=== PATIENT | male | born 1935 | race Caucasian/White ===

== ENCOUNTER → 2020-03-17 13:39 | Outpatient (CLI) | payer MEDICARE, OTHER, SELFPAY ==
--- NOTE | 2020-03-17 14:07 | DI.ECHO.S_ITS ---
Echocardiogram Report + + :Name: MEIR YEAGER Study Date: 03/17/2020 Height: 69 in : :[facility] Weight: 220 lb : : Gender: Male BSA: 2.2 m2 : :: 1935 Age: 84 yrs BP: 160/64 mmHg: :Reason For Study: AORTIC INSUFFICIENCY : :Ordering Physician: LESIA, : :BECKEI Performed By: Amy Mcmanus : :Referring: BECKIE GRAF : + + Interpretation Summary Left ventricular systolic function is low normal with the ejection fraction visually estimated to be 55-60% with borderline global hypokinesis and moderate mid septal wall hypokinesis but no other obvious focal wall motion abnormalities, and appears slightly more dynamic compared to the previous study. There is a mild dyssynchronous contraction pattern, consistent with a conduction abnormality, that is unchanged. Left ventricular size is at the upper limits of normal with an estimated left ventricular end diastolic volume of 102 ml compared to 112 ml on the previous exam. Diastolic parameters suggest a relaxation abnormality of the left ventricle, consistent with probable normal filling pressures and likely unchanged compared to the previous study. The right ventricle is not well visualized but appears borderline dilated with systolic function at the lower limits of normal but grossly unchanged compared to the previous study. The right ventricular systolic pressure is estimated to be at least 25 mmHg based on an estimated right atrial pressure of 3 mm Hg, and is likely unchanged compared to the previous study. Both atria are normal in size. The left atrium has mildly decreased in size since the prior echo exam. The atrial septum is aneurysmal. There is mild mitral regurgitation and mild pulmonic regurgitation that are less prominent compared to the previous study. There is mild to moderate tricuspid regurgitation that is slightly more prominent compared to the previous study. The aortic valve is mildly calcified with mild to moderate aortic regurgitation that is unchanged compared to the previous study. The ascending aorta is mild-moderately enlarged and measures slightly larger compared to the previous study. Procedure: A two-dimensional transthoracic echocardiogram with color flow and Doppler was performed. The study quality was technically adequate. Comparison is made with the echocardiogram of 02/25/2017. The patient had frequent PVCs during the exam. The heart rate ranged between 55-69 bpm during the study. Left Ventricle: Left ventricular size is at the upper limits of normal. The estimated left ventricular end diastolic volume is 102 ml compared to the previous 112 ml. There is normal left ventricular wall thickness. Left ventricular systolic function is low normal. The ejection fraction is estimated to be 55-60%. There is borderline global hypokinesis and moderate mid septal wall hypokinesis but no other obvious focal wall motion abnormalities. There is a mild dyssynchronous contraction pattern, consistent with a conduction abnormality. This is slightly more dynamic compared to the previous study. Diastolic parameters suggest a relaxation abnormality of the left ventricle, consistent with probable normal filling pressures. This is unchanged compared to the previous study. Right Ventricle: The right ventricle is not well visualized. The right ventricle is borderline dilated. Right ventricular systolic function is at the lower limits of normal. This is grossly unchanged compared to the previous study. Atria: Both atria are normal in size. The left atrium has mildly decreased in size since the prior echo exam. The atrial septum is aneurysmal. There is no Doppler evidence for an interatrial shunt. Mitral Valve: There is mild mitral annular calcification. The mitral valve is normal in structure and function. The mitral valve leaflets are slightly calcified. There is mild mitral regurgitation. This is less prominent compared to the previous study. Aortic Valve: The aortic valve is trileaflet. The aortic valve is mildly calcified. The aortic valve opens well. There is no aortic valve stenosis. There is mild to moderate aortic regurgitation. This is unchanged compared to the previous study. Tricuspid Valve: The tricuspid valve is normal in structure and function. There is mild to moderate tricuspid regurgitation. This is slightly more prominent compared to the previous study. The right ventricular systolic pressure is estimated to be at least 25 mmHg based on an estimated right atrial pressure of 3 mm Hg. This is unchanged compared to the previous study. Pulmonic Valve: The pulmonic valve leaflets are thin and pliable; valve motion is normal. There is mild pulmonic regurgitation. This is less prominent compared to the previous study. Great Vessels: The aortic root is normal size. The ascending aorta is mildmoderately enlarged. This is slightly larger compared to the previous study. The IVC is of normal diameter and collapses greater than 50% with a sniff. This suggests a low right atrial pressure of 3 mm Hg. Pericardium/ Pleura There is no pericardial effusion. There is no pleural effusion. MMode/2D Measurements & Calculations LVIDd: 5.3 cm LVOT diam: 2.0 cm LVIDs: 3.5 cm Ao root diam: 3.3 cm FS: 33.7 % asc Aorta Diam: 3.8 cm EPSS: 0.41 cm IVSd: 0.89 cm LVPWd: 0.82 cm LV holt. diameter/BSA (cm/m^2): 2.5 LV sys. diameter/BSA (cm/m^2): 1.6 LA A2 area: 22.6 cm2 RA long axis: 5.9 cm LA A4 area: 22.9 cm2 RA area: 20.1 cm2 LA length (vol): 6.4 cm RA vol: 58.5 ml LA vol: 69.1 ml RA : 27.2 ml/m2 LA vol index: 32.1 ml/m2 IVC diam: 1.3 cm RVD1 (basal): 4.2 cm TAPSE: 2.1 cm Doppler Measurements & Calculations Ao V2 max: 141.0 cm/sec LVOT Max Jose Daniel: 91.0 cm/sec Ao V2 mean: 88.3 cm/sec LV V1 max P.3 mmHg Ao max P.0 mmHg LV V1 VTI: 21.0 cm Ao mean P.7 mmHg BREEZY(I,D): 2.1 cm2 Ao V2 VTI: 32.6 cm BREEZY(V,D): 2.1 cm2 sev ratio: 0.64 BREEZY indexed to BSA (cm^2/m^2): 0.97 AI P1/2t: 639.4 msec AI dec slope: 170.8 cm/sec2 MV E max jose daniel: 61.5 cm/sec TR max jose daniel: 238.3 cm/sec MV A max jose daniel: 77.2 cm/sec TR max P.7 mmHg MV E/A: 0.80 PA pr(Accel): 13.9 mmHg Med Peak E' Jose Daniel: 7.0 cm/sec E/E' med: 8.7 Lat Peak E' Jose Daniel: 9.6 cm/sec E/E' lat: 6.4 E/e' average: 7.6 MV dec time: 0.23 sec SV(LVOT): 68.3 ml Reading Physician:09:23 AM
== END ==
PROVIDERS: Family Provider Family Medicine; PCP Family Medicine; Referring Provider Family Medicine; Visit Provider Specialist
DX: I08.3 Combined rheumatic disorders of mitral, aortic and tricuspid valves (principal); I77.89 Other specified disorders of arteries and arterioles
CPT/HCPCS: 93306

== ENCOUNTER → 2020-04-18 12:56 | Outpatient (CLI) | payer MEDICARE, OTHER, SELFPAY ==
[2020-04-19 21:01] LABS: COVID19 Sendout Not Detected (Not Detect)
== END ==
PROVIDERS: PCP Family Medicine; Visit Provider Physician Assistant
DX: Z11.59 Encounter for screening for other viral diseases (principal)
CPT/HCPCS: 87635

== ENCOUNTER 2020-04-21 06:08 | Day surgery (SDC) | payer MEDICARE, OTHER, SELFPAY ==
[2020-04-14 08:39] VITALS: BMI 31.7
[2020-04-21] VITALS (14 sets, daily range): BP systolic 118–171; BP diastolic 45–70; PULSE 50–71; RESP 12–18; TEMP 35.8–36.6; O2SAT 92–99; BMI 31.7
--- NOTE | 2020-04-21 06:00 | DI.RAD.S_ITS ---
PROCEDURE: XR KNEE LT 1TO2V INDICATIONS: post op films TECHNIQUE: 2 view(s) of the knee acquired. COMPARISON: None. FINDINGS: Bones: Patient is status post knee joint arthroplasty. Hardware components are in expected positions. Visualized bony structures are intact. Soft tissues: Overlying postoperative changes are noted. IMPRESSION: Status post left total knee arthroplasty. Dictated by: Paris Brooke M.D. on 04/21/2020 at 12:07 Approved by: Paris Brooke M.D. on 04/21/2020 at 12:07
[2020-04-21] MEDS: ACETAMINOPHEN 325 MG TABLET 975 MG PO (06:47)
[2020-04-21] MEDS: PREGABALIN 75 MG CAPSULE PO (06:48)
[2020-04-21] MEDS: CELECOXIB 200 MG CAPSULE PO (06:48)
[2020-04-21] MEDS: LACTATED RINGERS 1,000 ML 42 ML IV ×2 (07:00→08:47)
--- NOTE | 2020-04-21 07:43 | PM.PREOP ---
Pre-operative Note COVID-19 COVID-19 status: Negative Result date/Date tested (Pos, Neg/Pending): 04/18/20 Interval Note History & Physical reviewed/Exam performed by Physician: Yes Changes to H&P: No
--- NOTE | 2020-04-21 07:44 | PM.OP.1 ---
Operative Date/Time/Diagnoses Date of procedure: 04/21/20 Time of procedure: 09:41 Pre-op diagnosis: Left knee osteoarthritis Post-op diagnosis: same Procedure & Clinicians Procedure: Left total knee arthroplasty Same procedure as scheduled: Yes Indications: The patient presents today for total knee arthroplasty after failure of conservative treatment. The nature of the procedure including the risks and benefits, alternatives, postoperative course and expected outcome were discussed and all questions answered. Consent was obtained. Operative site confirmed and marked. Surgeon: Jaguar Hoff Hoop Maker Machine: Ileana Wang Anesthesia Type: Spinal, Peripheral nerve block and Local Operative Notes Closure Type: primary Specimen(s): none sent Prosthetic devices, grafts, tissues, transplants, or devices: [employer] [facility] BCS: 7 femoral component, 6 tibial component, 9 mm BCS polyethylene tray and 35 x 9 mm round patella Applied: implant(s) Estimated Blood Loss (mL): 5 Blood products transfused: none Tourniquet time (min): 64 Procedure in detail: The patient was taken to the operative suite and placed under anesthesia. The patient was given prophylactic antibiotics prior to surgery. The lateral knee was prepped and the joint injected with 20 mL of 1% Lidocaine with epinephrine. The knee was then prepped and draped in usual sterile fashion. The leg was exsanguinated with an Esmarch dressing and the tourniquet raised to 250 torr. A 15 cm anterior incision was made. Next a medial trivector arthrotomy was made. The extensor mechanism was marked to ensure accurate repair. Initial exposing dissection was carried out medially and laterally. The knee was then flexed and the intramedullary femoral guide rik placed. The distal femoral cut was made in 6? of valgus at the +2 position. The femoral size was measured and the appropriate cutting block was then placed and the anterior, posterior and chamfer cuts made. The intramedullary tibial alignment rik was then placed. The guide was set to remove approximately 10 mm from the less affected lateral side. The proximal tibial cut was then made with an oscillating saw. All meniscus and bony debris was then removed. Posterior femoral osteophytes removed with a curved osteotome. Flexion extension gaps were checked. No specific balancing was required other than routine exposure and removal of osteophytes. The soft tissues were then injected with a combination of 20 mL of half percent Marcaine with epinephrine and 20 mL of Exparel. The trial components were then placed. The knee was then extended and the patellar thickness was measured and a cut made removing approximately 9 mm of bone. The patella was then sized and drilled. Some excess lateral bone was excised and the patellofemoral ligament released. The knee went into full extension and flexion beyond 130?. There was excellent medial-lateral balance throughout motion. Patellar tracking was excellent. The trial components were removed and the knee was cleansed with Pulsavac irrigation and dried. The final components were cemented with high viscosity vacuum mixed bone cement with antibiotics. The joint was filled with a dilute Betadine solution. The knee was held in extension and the patellar clamped until the cement was adequately cured. The knee was then irrigated. The extensor mechanism was closed with 5 interrupted #1 Vicryl sutures and a running Quill suture at approximately 90 degrees of flexion. The joint was then injected with a combination of 1 g of tranexamic acid and 20 mL of quarter percent Marcaine with epinephrine. The subcutaneous tissue was closed with 2 0 Vicryl. The skin was closed with a zip-line closure device and surgical adhesive. An Williams dressing and Carson wrap were then applied. The patient tolerated the procedure well and was returned to recovery room in good condition. Complications: none Post-operative Condition: stable Disposition: PACU Plan for aftercare: [facility] Protocol.
[2020-04-21] MEDS: MIDAZOLAM 2 MG/2 ML VIAL IV (07:47)
[2020-04-21] MEDS: fentaNYL 100 MCG/2 ML INJ 50 MCG IV (07:47)
--- NOTE | 2020-04-21 07:57 | SUR.PREOP ---
Block start time [0746] . Monitoring initiated and maintained throughout procedure. Medications given per anesthesiologist instructions. Patient remained stable throughout procedure, no adverse reactions noted. Block end time [0754]. O2 available but not needed. Time out perfomed prior to start.
[2020-04-21] MEDS: CEFAZOLIN 2 GM/100 ML FROZ.PIGGY IV ×2 (08:09→16:09)
[2020-04-21] MEDS: LIDOCAINE 1% W/EPI 20 ML INJ (08:15)
--- NOTE | 2020-04-21 08:40 | SUR.OPER ---
Supine on padded OR bed. Pillow under head, arms secured on padded armboards <90 degree abduction. Safety belt across torso. Non-operative leg secured with tape over blanket over lower leg. Operative leg secured in DeMayo/Alexis positioner. Foam padded brace at thigh of operative leg.
[2020-04-21] MEDS: BUPIVACAINE 0.25% W/ EPI (PF) 20 ML, TRANEXAMIC ACID 1,000 MG, SODIUM CHLORIDE 0.9% 10 ML INJ (08:52)
[2020-04-21] MEDS: BUPIVACAINE 0.25% W/ EPI (PF) 40 ML, BUPIVACAINE LIPOSOME 266 MG, SODIUM CHLORIDE 0.9% ... INJ (08:52)
[2020-04-21] MEDS: SODIUM CHLORIDE IRRIG SOLUTION 250 ML, POVIDONE-IODINE SPONGE STICKS 1 APPLIC IRR (08:54)
--- NOTE | 2020-04-21 11:03 | SUR.PHASEI ---
pt arrived from OR awake, O2 sats were low, repositioned pt and sat up HOB, sats increased. Reminded pt occassionally to take deep breath and sats stayed >90%. Up to 216, report to DRAKE Davis.
[2020-04-21] MEDS: LACTATED RINGERS 1,000 ML 100 ML IV ×2 (11:27→22:05)
--- NOTE | 2020-04-21 11:43 | PC.NURSE ---
Addendum entered by Susan Dasilva R.N. 04/21/20 15:17: Pt states pain to left knee dull aching is 1-2/10. INES dressing does have small amount of bloody drainage shadowing, intact. Pt had not voided since being at home earlier this AM. Bladder scan done at 1415 for 559 mls by ROPING MACHINE TENDER. Pt OOB and voided approx 500 mls in urinal. Pt then ambulated in hallway with PT around 1445, settled into recliner chair, call light within reach. Original Note: Day Shift- Report rec'd from DRAKE Brown at 1042. Pt arrived to unit room 216 at 1055 via bed. Bedside left knee dressing check done. INES dressing CDI, ice pack in place, green flashing light on INES dressing device is intermittent. VSS, afebrile. Pt oriented to call light, bed functions, HOB elevated. Alert and oriented X4. Uses portable speaking device to communicate his needs. Pt very pleasant and makes jokes. Denies pain, discomfort, nausea, shortness of breath. Pt able to use incentive spirometer to trach site, some difficulty noted. IS to volume of 1000, pt does cough after using, O2 sats 97% on RA. BLE pt denies any numbness, able to lift both legs off bed equally. PPP, no peripheral edema noted. Calf SCD's to BLE per order, pt instructed to perform ankle waves. No voiced concerns at this time, no urge to void. Call light within reach.
[2020-04-21] MEDS: IBUPROFEN 400 MG TABLET PO ×3 (12:10→21:09)
[2020-04-21] MEDS: ACETAMINOPHEN 325 MG TABLET 650 MG PO ×2 (14:06→20:39)
--- NOTE | 2020-04-21 14:35 | PT.IIE ---
Surgery Performed Operation Date: 04/21/20 07:45 Actual Procedures p Total Knee Arthroplasty(Left) - Jaguar Hoff MD Surgical History (Last Updated 04/14/20 @ 13:14 by Lucia Robison RN) Hx of bilateral cataract extraction (Acute) Hx of laryngectomy (Acute 1990) S/P CABG x 4 (Acute 2004) Medical History (Last Updated 04/14/20 @ 09:15 by Lucia Robison RN) Aortic regurgitation (Acute) Aortic valve sclerosis (Acute) CAD (coronary artery disease) (Acute) History of angina (Acute) HLD (hyperlipidemia) (Acute) HTN (hypertension) (Acute) Mitral regurgitation (Acute) Osteoarthritis (Acute) Plantar fasciitis (Acute) RBBB (right bundle branch block) (Acute) Right patella fracture (Acute) Seasonal allergies (Acute) Sinus bradycardia (Acute) Tricuspid regurgitation (Acute) Physical Therapy Inpatient Evaluation/Re-Eval M1 PT/OT-IP Prior Functional Status Start: 04/21/20 15:51 Freq: NEEDED Status: Active Protocol: Document 04/21/20 14:35 AB (Rec: 04/21/20 16:01 [email or web address]) Medical Review Prior Functional Status Medical History Reviewed Yes Communication able to make needs known Mobility and Gait pt stated that he is independent with all mobilities and ambulation without AD Social History Household Members spouse Living Arrangements House Number of Floors (Floors) One Floor Number of Stairs To Enter/Railing? 2 platform steps to enter the house Home Environment Standard Height Toilet,Walk in Shower Home Equipment Front Wheel Walker,Quad Cane, Straight Cane,Raised Toilet Seat Without Armrests,Shower Seat without Backrest,Hand Held Shower,Grab Bars Near Toilet Additional Social History Comment pt's daughter will be staying with pt for ~ 1 month to assist him M2 PT-IP Current Condition Start: 04/21/20 15:51 Freq: NEEDED Status: Active Protocol: Document 04/21/20 14:35 AB (Rec: 04/21/20 16:01 [email or web address]) Physical Therapy Current Condition Current Condition Evaluation Date 04/21/20 Treatment Diagnosis s/p L TKA; difficulty in walking Onset Date 04/21/20 Precautions Other Precautions uses electrolarynx to communicate Weight Bearing Status Weight Bearing Status Weight Bear as Tolerated Allowed Weight Bearing Amount (enter % WBAT LLE or #) (%) M3 PT-IP Subjective Start: 04/21/20 15:51 Freq: NEEDED Status: Active Protocol: Document 04/21/20 14:35 AB (Rec: 04/21/20 16:01 [email or web address]) Subjective Physical Therapy Visit Type Type Initial Evaluation Visit Start Time 14:35 Visit Stop Time 15:22 Total Visit Minutes 47 Number of NITROGLYCERIN SUPERVISOR Visits 0 Physical Therapy Visit Comments Patient Comments pt is agreeable to do PT Therapy Pain Assessment Pain When Pain Assessed At Rest Pain Present Pain Present Pain Reported Location Left Knee Intensity 2 Scale Used Numeric (0 - 10) Pain Management Techniques Apply Cold,Modification of Treatment,Re-positioning, Timing of Activity with Medications M4 PT-IP Mobility and Gait Start: 04/21/20 15:51 Freq: NEEDED Status: Active Protocol: Document 04/21/20 14:35 AB (Rec: 04/21/20 16:01 [id number]) PT-Bed Mobility Assessment Supine to Sit Supine to Sit Standby Assistance Sit to Supine Sit to Supine Standby Assistance Scooting Scooting to Edge of Bed Standby Assistance PT-Transfer Assessment Sit to and From Stand Sit to and from Stand Standby Assistance,1 Person Assistance,Use of Upper Extremities Equipment Transfer Assistive Device Gait Belt,Front Wheeled Walker Orthotic/Prosthetic Devices or Brace: No Transfers Transfer Destination Bed,Chair Transfer Technique Stand Step Pivot Transfer Ability Level of Assist Standby Assistance Comments Mobility Comments completed sit to stand from chair SBA. ambulated in room using FWW SBA ~ 20 ft. completed supine<>sit SBA. pt agreed to do stair training. ambulated in the hallway ~ 100 ft using FWW SBA. completed up/down platform step using FWW CGA. pt ambulated back towards his room ~ 150 ft SBA. pt requested to stay up on the chair. positioned pt on the chair. call light and table placed within reach. Gait Assessment Gait Gait Assistance Required: Standby Assistance Distance (Feet) 150 Able to Maintain Weight Bearing Status Yes During Gait Assistive Devices Assistive Device Gait Belt,Front Wheeled Walker Orthotic/Prosthetic Devices or Brace: No Gait Deviations General Gait Pattern Antalgic,Decreased Stride Length,Decreased Feet Clearance Factors Limiting Gait Function Factors Limiting Gait Function Decreased Activity Tolerance, Decreased Strength,Limited Range of Motion,Pain,Poor Balance Stair Climbing Assessment Evaluation Level of Assist On Stairs Contact Guard Assistance Devices Stair Climbing Assistive Devices Front Wheel Walker Technique/Endurance Stair Climbing Direction Ascend and Descend Stair Climbing Technique Step to Step Number of Steps Climbed 1 Query Text: Stair Climbing Set # Repetitions (reps) 1 PT-Balance Assessment Sitting Balance and Reactions Static Sitting Balance Ability Normal Dynamic Sitting Balance Ability Normal Standing Balance and Reactions Static Standing Balance Ability Fair Dynamic Standing Balance Ability Fair Device Used FWW M5 PT-IP Objective Assessments Start: 04/21/20 15:51 Freq: NEEDED Status: Active Protocol: Document 04/21/20 14:35 AB (Rec: 04/21/20 16:01 AB [email or web address]) Orientation Orientation/Cognition Level of Alertness Alert Orientation Name Comments pt has h/o larygectomy and uses an electrolarynx to communicate Strength Lower Extremity Strength Assessment Left Impaired Hip 3+/5 Knee 4-/5 Coordination Assessment Gross Coordination Gross Coordination WNL Sensation Assessment Sensation Gross Sensation WNL Muscle Tone Muscle Tone WNL Yes M6 PT-IP Treatment Start: 04/21/20 15:51 Freq: NEEDED Status: Active Protocol: Document 04/21/20 14:35 AB (Rec: 04/21/20 16:01 AB [email or web address]) Physical Therapy Treatment Education Education Provided Precautions,Weight Bearing Status,Post-Op Packet,Safety M7 PT-IP Assessment and Plan Start: 04/21/20 15:51 Freq: NEEDED Status: Active Protocol: Document 04/21/20 14:35 AB (Rec: 04/21/20 16:01 [email or web address]) PT Summary Assessment and Plan Potential Rehabilitation Potential Good Status of Condition at Evaluation Stable Summary Impairments Pain,ROM,Strength,Balance,Bed Mobility,Transfers,Gait, Activity Tolerance Assessment Summary pt requiring SBA with ambulation using FWW. pt plans to go home and his daughter will be assisting him at home. pt is set up for outpt PT. pt may go home when medically stable. Goals Bed Mobility Goal Independent Transfer Goal Independent,Front Wheeled Walker Gait Goal Independent,Front Wheel Walker Gait Distance 250 Other Goals up/down 2 platform steps using FWW SBA Days to Meet Goals 3 Frequency of Treatment Frequency Of Treatment Twice a Day Treatment Plan Physical Therapy Treatment Plan Bed Mobility Training,Transfer Training,Gait Training, Therapeutic Exercise,Balance Retraining,Post Op Education, Discharge Planning,Hot or Cold Pack,Neuromuscular Re-ed, Coordination Retraining,Manual Therapy Other Recommendations and Next Treatment ambulation, stair climbing, Focus caregiver training if appropriate Recommendations To Nursing Amount of Assist Needed 1 Person Assist Discharge Recommendations PT Discharge Recommendations Home with Assistance, Outpatient PT Transportation Needs at Discharge Private Vehicle
[2020-04-21] MEDS: OXYCODONE IR 5 MG TABLET PO (18:55)
[2020-04-21] MEDS: METOPROLOL ER 25 MG TABLET PO (20:39)
[2020-04-21] MEDS: ASPIRIN EC 81 MG TABLET PO (20:40)
[2020-04-21] MEDS: MONTELUKAST 10 MG TABLET PO (20:40)
[2020-04-21] MEDS: PANTOPRAZOLE 20 MG TABLET PO (20:40)
[2020-04-21] MEDS: DOCUSATE 100 MG CAPSULE PO (20:40)
[2020-04-21] MEDS: ATORVASTATIN 20 MG TABLET 40 MG PO (20:40)
[2020-04-22 00:10] VITALS: BP 136/53; PULSE 58; RESP 16; TEMP 36.1; O2SAT 98
[2020-04-22] MEDS: CEFAZOLIN 2 GM/100 ML FROZ.PIGGY IV (00:23)
[2020-04-22] MEDS: IBUPROFEN 400 MG TABLET PO ×4 (00:24→13:30)
[2020-04-22 04:50] VITALS: BP 148/58; PULSE 51; RESP 16; TEMP 36.1; O2SAT 96
[2020-04-22 05:10] VITALS: PULSE 53; O2SAT 100
[2020-04-22 05:20] LABS: Hematocrit 38.4 % (41-53); Hemoglobin 12.6 g/dL (13.5-17.5)
[2020-04-22] MEDS: ACETAMINOPHEN 325 MG TABLET 650 MG PO (08:30)
[2020-04-22] MEDS: ASPIRIN EC 81 MG TABLET PO (08:30)
[2020-04-22] MEDS: DOCUSATE 100 MG CAPSULE PO (08:30)
[2020-04-22 08:50] VITALS: BP 131/51; PULSE 62; RESP 18; TEMP 36.2; O2SAT 96
--- NOTE | 2020-04-22 09:24 | PM.PN.1 ---
Subjective Subjective Date Patient Seen: 04/22/20 Time Patient Seen: 09:24 Interval history: Patient is POD#1 s/p left TKA with Dr. Hoff. Pain has been well controlled with Tylenol and Ibuprofen. He has mobilized with PT. He has no complaints. Exam Vital Signs (past 8 hours): - 04/22/20 04:50 04/22/20 05:10 Temperature 96.9 F L Pulse Rate 51 L 53 L Respiratory Rate 16 Blood Pressure 148/58 H Pulse Oximetry 96 100 Oxygen Delivery Method Room Air Oxygen Flow Rate 0 Narrative Exam Narrative: 84 year old male resting in chair alert and oriented no acute distress. INES dressing in place is on and functional. Some shadow drainage clearly demarcated. Neurovascularly intact in distal extremity. Calves soft. Palpable pedal pulse. Objective Labs Result Diagrams: 04/22/20 05:00 Labs: Laboratory Results - last 24 hr 04/22/20 05:00 Hgb 12.6 L Hct 38.4 L Assessment & Plan Assessment & Plan narrative: Patient doing well postop from TKA. ASA 81mg for DVT prophylaxis. Doing well with PT, recommend he work with them again today prior to discharge. Stable for discharge to home later today.
--- NOTE | 2020-04-22 10:29 | PT.IPTN ---
Surgery Performed Operation Date: 04/21/20 07:45 Actual Procedures p Total Knee Arthroplasty(Left) - Jaguar Hoff MD Physical Therapy Treatment Note M2 PT-IP Current Condition Start: 04/21/20 15:51 Freq: NEEDED Status: Active Protocol: Document 04/21/20 14:35 AB (Rec: 04/21/20 16:01 AB [id number]) Physical Therapy Current Condition Current Condition Evaluation Date 04/21/20 Treatment Diagnosis s/p L TKA; difficulty in walking Onset Date 04/21/20 Precautions Other Precautions uses electrolarynx to communicate Weight Bearing Status Weight Bearing Status Weight Bear as Tolerated Allowed Weight Bearing Amount (enter % WBAT LLE or #) (%) M3 PT-IP Subjective Start: 04/21/20 15:51 Freq: NEEDED Status: Active Protocol: Document 04/22/20 10:05 KS (Rec: 04/22/20 12:20 KS [id number]) Subjective Physical Therapy Visit Type Type Treatment Note Visit Start Time 10:05 Visit Stop Time 10:29 Total Visit Minutes 24 Number of RIG WELDER Visits 1 Physical Therapy Visit Comments Patient Comments pt is agreeable to do PT Therapy Pain Assessment Pain When Pain Assessed During Mobility Pain Present Pain Present Pain Reported Location Left Knee Scale Used no number given Description Aching,Tightness Pain Behaviors Guarding Pain Management Techniques Elevation,Re-positioning M4 PT-IP Mobility and Gait Start: 04/21/20 15:51 Freq: NEEDED Status: Active Protocol: Document 04/22/20 10:05 KS (Rec: 04/22/20 12:20 KS [id number]) PT-Bed Mobility Assessment Scooting Scooting to Edge of Bed Standby Assistance PT-Transfer Assessment Sit to and From Stand Sit to and from Stand Standby Assistance,1 Person Assistance,Use of Upper Extremities Equipment Transfer Assistive Device Gait Belt,Front Wheeled Walker Orthotic/Prosthetic Devices or Brace: No Transfers Transfer Destination Chair Transfer Technique pt ambulated w/ FWW Transfer Ability Level of Assist Standby Assistance Comments Mobility Comments Pt in chair upon arrival from therapy and stated he has gotten out of bed on his own a few times this AM to use the bathroom. Pt SBA for scooting to EOC and sit<>stand w/ FWW. Pt then ambulated ~220 ft w/ FWW and SBA. Pt required min cues for heel toe walking and knee flexion when ambulating. Pt relies fairly heavily with BUE on FWW d/t reported L knee pain. Pt returned to room and chair SBA. Pt left in room w/ all needs in reach. Gait Assessment Gait Gait Assistance Required: Standby Assistance,1 Person Assist Distance (Feet) 220 Able to Maintain Weight Bearing Status Yes During Gait Assistive Devices Assistive Device Gait Belt,Front Wheeled Walker Orthotic/Prosthetic Devices or Brace: No Gait Deviations General Gait Pattern Antalgic,Decreased Stride Length,Decreased Feet Clearance Factors Limiting Gait Function Factors Limiting Gait Function Decreased Activity Tolerance, Decreased Strength,Limited Range of Motion,Pain Comments Gait Comments Please refer to mobility section for details. Stair Climbing Assessment Comments Stair Climbing Comments Did not assess, pt completed steps last treatment and stated he does not want to practice again. PT-Balance Assessment Sitting Balance and Reactions Static Sitting Balance Ability Normal Dynamic Sitting Balance Ability Normal Standing Balance and Reactions Static Standing Balance Ability Good Dynamic Standing Balance Ability Fair Device Used FWW M5 PT-IP Objective Assessments Start: 04/21/20 15:51 Freq: NEEDED Status: Active Protocol: Document 04/21/20 14:35 AB (Rec: 04/21/20 16:01 AB [id number]) Orientation Orientation/Cognition Level of Alertness Alert Orientation Name Comments pt has h/o larygectomy and uses an electrolarynx to communicate Strength Lower Extremity Strength Assessment Left Impaired Hip 3+/5 Knee 4-/5 Coordination Assessment Gross Coordination Gross Coordination WNL Sensation Assessment Sensation Gross Sensation WNL Muscle Tone Muscle Tone WNL Yes M6 PT-IP Treatment Start: 04/21/20 15:51 Freq: NEEDED Status: Active Protocol: Document 04/22/20 10:05 KS (Rec: 04/22/20 12:20 DE [id number]) Physical Therapy Treatment Exercises Exercises Ankle Pumps Education Education Provided Precautions,Weight Bearing Status,Post-Op Packet,Safety M7 PT-IP Assessment and Plan Start: 04/21/20 15:51 Freq: NEEDED Status: Active Protocol: Document 04/22/20 10:05 KS (Rec: 04/22/20 12:20 DE [id number]) PT Summary Assessment and Plan Potential Rehabilitation Potential Good Status of Condition at Evaluation Stable Summary Impairments Pain,ROM,Strength,Balance,Bed Mobility,Transfers,Gait, Activity Tolerance Progress Towards Goals Progressing Toward Goals Assessment Summary Pt SBA for mobility, transfers , and ambulation. Able to tolerate ~220 ft ambulation w/ FWW, heavy reliance on BUE through FWW d/t pain in L knee . Pt stated his daugther will be staying w/ him for a month and he has FWW for home use. Pt will benefit from outpatient therapy for strengthening and ROM, which he has set up. Goals Bed Mobility Goal Independent Transfer Goal Independent,Front Wheeled Walker Gait Goal Independent,Front Wheel Walker Gait Distance 250 Other Goals up/down 2 platform steps using FWW SBA Days to Meet Goals 3 Frequency of Treatment Frequency Of Treatment Twice a Day Treatment Plan Physical Therapy Treatment Plan Bed Mobility Training,Transfer Training,Gait Training, Therapeutic Exercise,Balance Retraining,Post Op Education, Discharge Planning,Hot or Cold Pack,Neuromuscular Re-ed, Coordination Retraining,Manual Therapy Other Recommendations and Next Treatment ambulation, stair climbing, Focus caregiver training if appropriate Recommendations To Nursing Amount of Assist Needed 1 Person Assist Discharge Recommendations PT Discharge Recommendations Home with Assistance, Outpatient PT Transportation Needs at Discharge Private Vehicle
[2020-04-22 11:05] VITALS: BP 117/57; PULSE 56; RESP 16; TEMP 36.4; O2SAT 97
[2020-04-22] MEDS: OXYCODONE IR 5 MG TABLET PO (11:18)
--- NOTE | 2020-04-22 11:54 | PC.NURSE ---
Addendum entered by Susan Dasilva R.N. 04/22/20 13:37: Discharge summary packet reviewed with pt and his at bedside. Reviewed but not limited to S/S of infection, pain management, activity and showering with dressing, ankle pump exercises and ambulating every couple hours to promote circulation. Pt states having all his belongings upon discharge, no further voiced concerns. Pt left unit at 1337 via wheelchair in no distress with [employer] escort. Pt's present with pt and pt's daughter will be driving pt home. Original Note: Day Shift- Pt A&OX4, able to make needs known using call light. Uses his [employer] device for effective communication. Left knee PIC dressing intact with green intermittent flashing light to battery pack- Drainage to approx 20% of dressing is old bloody shadowing. Extra INES dressing from surgery in pt's room and given to pt to take home. Pt is aware to not remove his current INES dressing, if any issue he is aware to call Dr. Hoff office first. PPP, edema surrounding surgical incision area. Ice pack to knee. Pt OOB this AM to recliner chair reports 2-3/10 pain aching to left knee incision. Ambulated in halls with PT and settled back into chair with BLE reclined. Pt's pain increased to 4/10. Pain management plan discussed. PRN Oxycodone given at 1115 per pt request and prior to discharge home after lunch. Pt aware if he needs to cut prn Oxycodone in half when at home depending on pain level. no other voiced concerns. Pt's daughter Valerie Sharpe called at 1140. SHe and pt's are on their way to visit pt. Pt's in room visiting pt and Valerie Sharpe is waiting in her car. Plan for discharge home around 1300.
[2020-04-22 12:15] VITALS: BP 145/61; PULSE 68; RESP 18; TEMP 36.4; O2SAT 95
[2020-04-22] MEDS: INFLUENZA HD VACCINE 0.7 ML SYRINGE IM (13:30)
--- NOTE | 2020-04-22 13:51 | CM.IDA ---
Initial DCP Assessment Note Pt is an 84 yo male, resident of [place], POD#1 from Left knee surgery w/ Dr Hoff PCP: Reginaldo Harrington Payer: [facility] Reviewed chart, pt discussed in multidisciplinary rounds this morning. Therapy has cleared pt for return home w/family to assist and pt has planned for home, DC order from Ortho has already been initiated this morning. No needs from DC planning team although will remain available in case this changes today. PONCHO Allred
== END 2020-04-22 13:37 | disposition home or self-care (01) ==
LOC: OR 06:13 → AC 08:58
PROVIDERS: PCP Family Medicine; Referring Provider Family Medicine; Visit Provider Orthopaedic Surgery
PROC: 0SRD0JZ Replacement of Left Knee Joint with Synthetic Substitute, Open Approach (ICD-10-PCS; CPT 27447; principal; 2020-04-21 07:45)
DX: M17.12 Unilateral primary osteoarthritis, left knee (principal); I10 Essential (primary) hypertension; I25.10 Atherosclerotic heart disease of native coronary artery without angina pectoris
CPT/HCPCS: 27447; 36415; 64450; 73560; 85014; 85018; 90471; 90662; 97116; 97161; 97530; C1776; C9290; J0690; J2250; J3010

== ENCOUNTER → 2020-08-31 08:50 | Outpatient (CLI) | payer MEDICARE, OTHER, SELFPAY ==
[2020-04-21 11:24] VITALS: BMI 31.7
[2020-08-31 12:35] LABS: COVID19 -Nasal RAPID Negative (Negative)
== END ==
PROVIDERS: PCP Family Medicine; Visit Provider Student in an Organized Health Care Education/Training Program
DX: Z20.822 Contact with and (suspected) exposure to COVID-19 (principal)
CPT/HCPCS: 87635; C9803

== ENCOUNTER 2020-09-02 06:07 | Day surgery (SDC) | payer MEDICARE, OTHER, SELFPAY ==
[2020-04-21 11:24] VITALS: BMI 31.7
[2020-09-02] VITALS (13 sets, daily range): BP systolic 115–157; BP diastolic 46–93; PULSE 54–71; RESP 10–20; TEMP 35.9–36.7; O2SAT 88–97; BMI 32.1
--- NOTE | 2020-09-02 | DI.RAD.S_ITS ---
PROCEDURE: XR KNEE RT 1TO2V INDICATIONS: RIGHT TKA TECHNIQUE: 2 view(s) of the knee acquired. COMPARISON: [facility], CR, XR KNEE LT 1TO2V, 04/21/2020, 10:25. FINDINGS: Bones: Patient is status post knee joint arthroplasty. Hardware components are in expected positions. Visualized bony structures are intact. Soft tissues: Overlying postoperative changes are noted. IMPRESSION: Expected immediate postoperative appearance, status post total right knee arthroplasty. Dictated by: Cornelius Fernandez M.D. on 09/02/2020 at 10:23 Approved by: Cornelius Fernandez M.D. on 09/02/2020 at 10:24
[2020-09-02] MEDS: LACTATED RINGERS 1,000 ML 42 ML IV ×2 (07:38→09:47)
--- NOTE | 2020-09-02 07:47 | P.OP_ITS ---
Operative Date/Time/Diagnoses Date of procedure: 09/02/20 Time of procedure: 09:45 Pre-op diagnosis: Right knee osteoarthritis Post-op diagnosis: same Procedure & Clinicians Procedure: Right total knee arthroplasty Same procedure as scheduled: Yes Indications: The patient presents today for total knee arthroplasty after failure of conservative treatment. The nature of the procedure including the risks and benefits, alternatives, postoperative course and expected outcome were discussed and all questions answered. Consent was obtained. Operative site confirmed and marked. Surgeon: Jaguar Hoff Manager Ct: Su Hartman Anesthesia Type: General, Spinal and Local Operative Notes Closure Type: primary Prosthetic devices, grafts, tissues, transplants, or devices: Hartman and Nephew Олег BCS: 7 femoral component, 6 tibial component, 9 mm BCS polyethylene tray and 35 x 9 mm round patella Applied: implant(s) Estimated Blood Loss (mL): 10 Blood products transfused: none Tourniquet time (min): 60 Procedure in detail: The patient was taken to the operative suite and placed under anesthesia. The patient was given prophylactic antibiotics prior to surgery. The patient was also given tranexamic acid, 1 g, just prior to surgery for postoperative hemostasis. The lateral knee was prepped and the joint injected with 20 mL of 1% Lidocaine with epinephrine. The knee was then prepped and draped in usual sterile fashion. The leg was exsanguinated with an Esmarch dressing and the tourniquet raised to 250 torr. A 15 cm anterior incision was made. Next a medial trivector arthrotomy was made. The extensor mechanism was marked to ensure accurate repair. Initial exposing dissection was carried out medially and laterally. The knee was then flexed and the intramedullary femoral guide rik placed. The distal femoral cut was made in 6? of valgus at the +1 position. The femoral size was measured and the appropriate cutting block was then placed and the anterior, posterior and chamfer cuts made. The intramed ullary tibial alignment rik was then placed. The guide was set to remove approximately 10 mm from the less affected lateral side. The proximal tibial cut was then made with an oscillating saw. All meniscus and bony debris was then removed. Posterior femoral osteophytes removed with a curved osteotome. Flexion extension gaps were checked. No specific balancing was required other than routine exposure and removal of osteophytes. The soft tissues were then injected with a combination of 20 mL of half percent Marcaine with epinephrine and 20 mL of Exparel. The trial components were then placed. The knee was then extended and the patellar thickness was measured and a cut made removing approximately 9 mm of bone. The patella was then sized and drilled. Some excess lateral bone was excised and the patellofemoral ligament released. The knee went into full extension and flexion beyond 130?. There was excellent medial-lateral balance throughout motion. Patellar tracking was excellent. The trial components were removed and the knee was cleansed with Pulsavac irrigation and dried. The final components were cemented with high viscosity vacuum mixed bone cement with antibiotics. The joint was filled with a dilute Betadine solution. The knee was held in extension and the patellar clamped until the cement was adequately cured. The knee was then irrigated. The extensor mechan ism was closed with 5 interrupted #1 Vicryl sutures and a running Quill suture at approximately 90 degrees of flexion. The joint was then injected with a combination of 1 g of tranexamic acid and 20 mL of quarter percent Marcaine with epinephrine. The subcutaneous tissue was closed with 2 0 Vicryl. The skin was closed with absorbable subcuticular sutures and surgical adhesive. An Aquacel dressing and Carson wrap were then applied. The patient tolerated the procedure well and was returned to recovery room in good condition. Complications: none Post-operative Condition: stable Disposition: PACU Plan for aftercare: [facility] Protocol.
--- NOTE | 2020-09-02 07:47 | PM.PREOP ---
Pre-operative Note COVID-19 COVID-19 status: Negative Result date/Date tested (Pos, Neg/Pending): 08/31/20 Interval Note History & Physical reviewed/Exam performed by Physician: Yes Changes to H&P: No
[2020-09-02] MEDS: CEFAZOLIN 2 GM/100 ML FROZ.PIGGY IV ×2 (07:55→16:53)
[2020-09-02] MEDS: LIDOCAINE 1% W/EPI 20 ML INJ (08:26)
[2020-09-02] MEDS: BUPIVACAINE 0.25% W/ EPI (PF) 40 ML, BUPIVACAINE LIPOSOME 266 MG, SODIUM CHLORIDE 0.9% ... INJ (08:26)
[2020-09-02] MEDS: BUPIVACAINE 0.25% W/ EPI (PF) 20 ML, TRANEXAMIC ACID 1,000 MG, SODIUM CHLORIDE 0.9% 10 ML INJ (08:28)
[2020-09-02] MEDS: LACTATED RINGERS 1,000 ML 100 ML IV ×2 (11:00→21:55)
[2020-09-02] MEDS: IBUPROFEN 400 MG TABLET PO ×2 (12:29→16:53)
--- NOTE | 2020-09-02 14:16 | PT.IIE ---
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) Medical History (Last Updated 08/24/20 @ 14:35 by Juliann Viveros, RN) Aortic regurgitation Aortic valve sclerosis Bradycardia CAD (coronary artery disease) History of angina HLD (hyperlipidemia) HTN (hypertension) Mitral regurgitation Obesity Osteoarthritis Osteoarthritis of right knee Pedal edema Plantar fasciitis RBBB (right bundle branch block) Right patella fracture Seasonal allergies Sinus bradycardia Tricuspid regurgitation Physical Therapy Inpatient Evaluation/Re-Eval M1 PT/OT-IP Prior Functional Status Start: 09/02/20 15:38 Freq: NEEDED Status: Active Protocol: Document 09/02/20 14:16 AB (Rec: 09/02/20 15:51 AB [id number]) Medical Review Prior Functional Status Medical History Reviewed Yes Communication able to make needs known; uses a [employer] voice box Mobility and Gait pt stated that he is independent with all mobilities and ambulation without AD Social History Household Members spouse Living Arrangements House Number of Floors (Floors) One Floor Number of Stairs To Enter/Railing? 2 steps L wall to enter from the front; 3 steps with L wall from the garage Home Environment Standard Height Toilet,Walk in Shower Home Equipment Front Wheel Walker,Straight Cane,Raised Toilet Seat Without Armrests,Shower Seat with Backrest,Hand Held Shower Additional Social History Comment stated that his spouse cannot assist him but his daughter from [place] will be staying with them for ~ 6 weeks to assist him M2 PT-IP Current Condition Start: 09/02/20 15:38 Freq: NEEDED Status: Active Protocol: Document 09/02/20 14:16 AB (Rec: 09/02/20 15:51 AB [id number]) Physical Therapy Current Condition Current Condition Evaluation Date 09/02/20 Treatment Diagnosis s/p R TKA; difficulty in walking Onset Date 09/02/20 Weight Bearing Status Weight Bearing Status Weight Bear as Tolerated Allowed Weight Bearing Amount (enter % RLE WBAT or #) (%) M3 PT-IP Subjective Start: 09/02/20 15:38 Freq: NEEDED Status: Active Protocol: Document 09/02/20 14:16 AB (Rec: 09/02/20 15:51 AB [id number]) Subjective Physical Therapy Visit Type Type Initial Evaluation Visit Start Time 14:16 Visit Stop Time 14:57 Total Visit Minutes 41 Number of PRINCIPAL CLERK TYPIST Visits 0 Physical Therapy Visit Comments Patient Comments pt is agreeable to do PT Therapy Pain Assessment Pain When Pain Assessed At Rest Pain Present Pain Present Pain Reported Location Left Knee Intensity 2 Scale Used Numeric (0 - 10) Pain Management Techniques Apply Cold,Re-positioning, Timing of Activity with Medications M4 PT-IP Mobility and Gait Start: 09/02/20 15:38 Freq: NEEDED Status: Active Protocol: Document 09/02/20 14:16 AB (Rec: 09/02/20 15:51 AB [id number]) PT-Bed Mobility Assessment Supine to Sit Supine to Sit Standby Assistance PT-Transfer Assessment Sit to and From Stand Sit to and from Stand Standby Assistance,Minimal Assistance Equipment Transfer Assistive Device Gait Belt,Front Wheeled Walker Orthotic/Prosthetic Devices or Brace: No Transfers Transfer Destination Chair Transfer Technique Stand Step Pivot Transfer Ability Level of Assist Standby Assistance,Contact Guard Assistance Comments Mobility Comments completed supine to sit SBA. pt completed sit to stand min A and pt tends not to use RLE. educated on weight bearing on RLE. completed ambulation in room using FWW CGA ~ 40 ft. rested on the chair. completed sit to stand from chair SBA and ambulated in the hallway using FWW SBA. completed up/down steps using L rail x 2 sets CGA. pt ambulated back to her room using FWW SBA. agreed to sit up on chair. positioned on chair. call light and table placed within reach. ice pack provided Gait Assessment Gait Gait Assistance Required: Standby Assistance,Contact Guard Assist,1 Person Assist Distance (Feet) 125 Able to Maintain Weight Bearing Status Yes During Gait Assistive Devices Assistive Device Gait Belt,Front Wheeled Walker Orthotic/Prosthetic Devices or Brace: No Gait Deviations General Gait Pattern Antalgic Factors Limiting Gait Function Factors Limiting Gait Function Decreased Activity Tolerance, Decreased Strength,Limited Range of Motion,Pain,Poor Balance,Poor Safety Awareness Comments Gait Comments pls refer to mobility section for details Stair Climbing Assessment Evaluation Level of Assist On Stairs Contact Guard Assistance Devices Stair Climbing Assistive Devices Left Railing Technique/Endurance Stair Climbing Direction Ascend and Descend Stair Climbing Technique Step to Step Number of Steps Climbed 3 Query Text: Stair Climbing Set # Repetitions (reps) 2 PT-Balance Assessment Sitting Balance and Reactions Static Sitting Balance Ability Good Dynamic Sitting Balance Ability Good Standing Balance and Reactions Static Standing Balance Ability Fair Dynamic Standing Balance Ability Fair Device Used FWW M5 PT-IP Objective Assessments Start: 09/02/20 15:38 Freq: NEEDED Status: Active Protocol: Document 09/02/20 14:16 AB (Rec: 09/02/20 15:51 AB [id number]) Orientation Orientation/Cognition Level of Alertness Alert Orientation Name,Age,Birthday,Month,Date, Year,Day of Week,Place, Situation Language Function Ability No Deficits Noted Safety Awareness Understands Safety Issues Memory Description No Deficits Noted Gross Range of Motion Lower Extremity ROM Assessment Right Impaired Impairments R knee flexion: ~ 60 deg Strength Lower Extremity Strength Assessment Right Impaired Hip 4-/5 Knee 4-/5 Coordination Assessment Gross Coordination Gross Coordination WNL Sensation Assessment Sensation Gross Sensation WNL Muscle Tone Muscle Tone WNL Yes M6 PT-IP Treatment Start: 09/02/20 15:38 Freq: NEEDED Status: Active Protocol: Document 09/02/20 14:16 AB (Rec: 09/02/20 15:51 AB [id number]) Physical Therapy Treatment Education Education Provided Precautions,Weight Bearing Status,Post-Op Packet,Safety M7 PT-IP Assessment and Plan Start: 09/02/20 15:38 Freq: NEEDED Status: Active Protocol: Document 09/02/20 14:16 AB (Rec: 09/02/20 15:51 AB [id number]) PT Summary Assessment and Plan Potential Rehabilitation Potential Good Status of Condition at Evaluation Stable Summary Impairments Pain,ROM,Strength,Balance,Bed Mobility,Transfers,Gait, Activity Tolerance Assessment Summary pt requiring SBA to CGA with mobility using FWW. pt will have his daughter to assist him at home and is set up for outpt PT. pt may go home when medically stable. Goals Bed Mobility Goal Independent Transfer Goal Independent,Front Wheeled Walker Gait Goal Independent,Front Wheel Walker Gait Distance 200 Other Goals up/down 3 steps L wall SBA Days to Meet Goals 3 Frequency of Treatment Frequency Of Treatment Twice a Day Treatment Plan Physical Therapy Treatment Plan Bed Mobility Training,Transfer Training,Gait Training, Therapeutic Exercise,Balance Retraining,Post Op Education, Discharge Planning,Hot or Cold Pack,Neuromuscular Re-ed, Coordination Retraining,Manual Therapy Recommendations To Nursing Amount of Assist Needed 1 Person Assist Discharge Recommendations PT Discharge Recommendations Home with Assistance, Outpatient PT Transportation Needs at Discharge Private Vehicle
--- NOTE | 2020-09-02 14:29 | PC.NURSE ---
Assumed care of patient at 1031. Patient A/O x4. Reports pain 3/10 in right knee. Has almost full ROM in knee, CMS intact. Dsg is CDI, JENNIFER wrap secure. Patients lungs are CTA, on RA 93-95%, denies SOB or cough. Tolerating PO intake. Trach stoma site is clean and free of drainage. Patient manages. SCD's on bilaterally. Awaiting post op void. Patient reports last BM 09/01. Bowel tones active. LR @100 cc/hr in left wrist. Patient up with PT at 1445. Reports increase in pain to 4/10. Scheduled Tylenol administered.
[2020-09-02] MEDS: ACETAMINOPHEN 325 MG TABLET 650 MG PO ×2 (14:42→21:56)
[2020-09-02] MEDS: TAMSULOSIN 0.4 MG CAPSULE PO (19:25)
[2020-09-02] MEDS: ASPIRIN EC 81 MG TABLET PO (21:56)
[2020-09-02] MEDS: PANTOPRAZOLE 20 MG TABLET PO (21:56)
[2020-09-02] MEDS: DOCUSATE 100 MG CAPSULE PO (21:57)
[2020-09-02] MEDS: ATORVASTATIN 20 MG TABLET 40 MG PO (21:57)
[2020-09-02] MEDS: METOPROLOL ER 25 MG TABLET PO (21:57)
[2020-09-02] MEDS: MONTELUKAST 10 MG TABLET PO (21:57)
[2020-09-03] MEDS: CEFAZOLIN 2 GM/100 ML FROZ.PIGGY IV (00:53)
[2020-09-03] MEDS: IBUPROFEN 400 MG TABLET PO ×3 (00:53→08:48)
[2020-09-03 01:00] VITALS: BP 149/90; PULSE 71; RESP 18; TEMP 36.6; O2SAT 98
--- NOTE | 2020-09-03 02:14 | PC.NURSE ---
0110: patient is alert and oriented. Had laryngectomy 30 years ago so has a trach but can speak using a voice activator. Breath sounds CTA with RA sat of 98%. HRR w/elevated BP of 159/90. Denies nausea. BT present and is passing flatus. Denies dysuria, frequency or urgency with urination. Is able to move self in bed and gets up with walker and SBA; denies weakness. Aquacel dressing covered with jazmine wrap to right knee is CDI. Denies pain but medicated with scheduled Ibuprofen and ice applied. CMS is intact bilaterally. Wearing bilateral calf SCD's. Reports no falls in past 3 months; fall risk score is moderate and bed alarm is activated although patient does call for assistance appropriately.
[2020-09-03 04:16] VITALS: BP 127/51; PULSE 55; RESP 18; TEMP 36.5; O2SAT 95
[2020-09-03 06:04] LABS: Hematocrit 39.4 % (41-53)
[2020-09-03 07:35] VITALS: BP 105/55; PULSE 64; RESP 14; TEMP 37.1; O2SAT 94
--- NOTE | 2020-09-03 08:37 | PM.PNPO.1 ---
Subjective Subjective Date Patient Seen: 09/03/20 Time Patient Seen: 08:38 Interval history: POD #1 s/p R TKA with Dr. Hoff. Patient doing very well this AM. He has already been mobilizing in the mcnair. No complaints today. Exam Vital Signs (past 8 hours): - 09/03/20 01:00 09/03/20 04:16 Temperature 97.9 F 97.7 F Pulse Rate 71 55 L Respiratory Rate 18 18 Blood Pressure 149/90 H 127/51 L Pulse Oximetry 98 95 Oxygen Delivery Method Room Air Oxygen Flow Rate 0 Narrative Exam Narrative: Patient sitting in bedside chair in NAD. He is alert and oriented X3. Dressing on right knee is CDI. Calves are soft, compressible, and nontender bilaterally. SILT throughout BLEs. He is able to actively dorsiflex and plantarflex. DP 2+. Objective Labs Result Diagrams: 09/03/20 05:37 Labs: Laboratory Results - last 24 hr 09/03/20 05:37 Hgb 13.0 L Hct 39.4 L PFSH Medical History Aortic regurgitation Aortic valve sclerosis Bradycardia CAD (coronary artery disease) History of angina HLD (hyperlipidemia) HTN (hypertension) Mitral regurgitation Obesity Osteoarthritis Osteoarthritis of right knee Pedal edema Plantar fasciitis RBBB (right bundle branch block) Right patella fracture Seasonal allergies Sinus bradycardia Tricuspid regurgitation Surgical History Hx of bilateral cataract extraction Hx of laryngectomy (1990) Hx of total knee arthroplasty S/P CABG x 4 (2004) Social History household members: spouse Smoking Status: Former smoker alcohol intake: current Assessment & Plan Post-op Postoperative Procedures: Procedures Operation Date: 09/02/20 07:45 Actual Procedures Side Surgeon p Total Knee Arthroplasty Right Jaguar Hoff MD Patient can continue to mobilize with PT. Continue current pain control. Will take ASA 81 mg BID for VTE prophylaxis. Plan to DC home today. Quality VTE Deep Vein Thrombosis/Pulmonary Embolism Present on Admission: No
[2020-09-03] MEDS: ACETAMINOPHEN 325 MG TABLET 650 MG PO (08:46)
[2020-09-03] MEDS: DOCUSATE 100 MG CAPSULE PO (08:47)
[2020-09-03] MEDS: ASPIRIN EC 81 MG TABLET PO (08:47)
--- NOTE | 2020-09-03 09:41 | PT.IPTN ---
Current Diagnoses Unilateral primary osteoarthritis, left knee (09/02/20) Surgery Performed Operation Date: 09/02/20 07:45 Actual Procedures p Total Knee Arthroplasty(Right) - Jaguar Hoff MD Physical Therapy Treatment Note M2 PT-IP Current Condition Start: 09/02/20 15:38 Freq: NEEDED Status: Active Protocol: Document 09/02/20 14:16 AB (Rec: 09/02/20 15:51 AB [id number]) Physical Therapy Current Condition Current Condition Evaluation Date 09/02/20 Treatment Diagnosis s/p R TKA; difficulty in walking Onset Date 09/02/20 Weight Bearing Status Weight Bearing Status Weight Bear as Tolerated Allowed Weight Bearing Amount (enter % RLE WBAT or #) (%) M3 PT-IP Subjective Start: 09/02/20 15:38 Freq: NEEDED Status: Active Protocol: Document 09/03/20 09:15 ZEFERINO (Rec: 09/03/20 09:41 LJ [id number]) Subjective Physical Therapy Visit Type Type Treatment Note Visit Start Time 09:15 Visit Stop Time 09:26 Total Visit Minutes 11 Number of STOVE MOUNTER Visits 1 Physical Therapy Visit Comments Patient Comments pt is agreeable to do PT Therapy Pain Assessment Pain When Pain Assessed At Rest Pain Present Pain Present Denied Pain M4 PT-IP Mobility and Gait Start: 09/02/20 15:38 Freq: NEEDED Status: Active Protocol: Document 09/03/20 09:15 ZEFERINO (Rec: 09/03/20 09:41 LJ [id number]) PT-Transfer Assessment Sit to and From Stand Sit to and from Stand Standby Assistance,Use of Upper Extremities Equipment Transfer Assistive Device Gait Belt,Front Wheeled Walker Orthotic/Prosthetic Devices or Brace: No Transfers Transfer Destination Chair Transfer Technique Stand Step Pivot Transfer Ability Level of Assist Standby Assistance,Use of Upper Extremities Comments Mobility Comments Pt completed sit<>stand SBA. Ambulated with FWW to stairs, trialed stairs x1 again and ambulated back to room. All mobility and ambulation SBA. Ambulated blank hallway w/FWW ~ 150' with normalizing gait pattern. Gait Assessment Gait Gait Assistance Required: Standby Assistance Distance (Feet) 150 Able to Maintain Weight Bearing Status Yes During Gait Assistive Devices Assistive Device Gait Belt,Front Wheeled Walker Orthotic/Prosthetic Devices or Brace: No Gait Deviations General Gait Pattern Antalgic Factors Limiting Gait Function Factors Limiting Gait Function Decreased Activity Tolerance, Decreased Strength,Limited Range of Motion,Pain,Poor Balance Comments Gait Comments pls refer to mobility section for details Stair Climbing Assessment Evaluation Level of Assist On Stairs Standby Assistance Devices Stair Climbing Assistive Devices Left Railing Technique/Endurance Stair Climbing Direction Ascend and Descend Stair Climbing Technique Step to Step Number of Steps Climbed 3 Stair Climbing Set # Repetitions (reps) 1 Comments Stair Climbing Comments pt profecient with step-to pattern on stairs. Demonstrates safety awareness and safe mobility. M5 PT-IP Objective Assessments Start: 09/02/20 15:38 Freq: NEEDED Status: Active Protocol: Document 09/02/20 14:16 AB (Rec: 09/02/20 15:51 AB [id number]) Orientation Orientation/Cognition Level of Alertness Alert Orientation Name,Age,Birthday,Month,Date, Year,Day of Week,Place, Situation Language Function Ability No Deficits Noted Safety Awareness Understands Safety Issues Memory Description No Deficits Noted Gross Range of Motion Lower Extremity ROM Assessment Right Impaired Impairments R knee flexion: ~ 60 deg Strength Lower Extremity Strength Assessment Right Impaired Hip 4-/5 Knee 4-/5 Coordination Assessment Gross Coordination Gross Coordination WNL Sensation Assessment Sensation Gross Sensation WNL Muscle Tone Muscle Tone WNL Yes M6 PT-IP Treatment Start: 09/02/20 15:38 Freq: NEEDED Status: Active Protocol: Document 09/03/20 09:15 (Rec: 09/03/20 09:41 [id number]) Physical Therapy Treatment Education Education Provided Safety M7 PT-IP Assessment and Plan Start: 09/02/20 15:38 Freq: NEEDED Status: Active Protocol: Document 09/03/20 09:15 (Rec: 09/03/20 09:41 LJ [id number]) PT Summary Assessment and Plan Potential Rehabilitation Potential Good Status of Condition at Evaluation Stable Summary Impairments Pain,ROM,Strength,Balance,Gait ,Activity Tolerance Assessment Summary Pt SBA for all mobility and stair climbing. Has met goals of ambulation and stair climbing and is safe for DC. Continue PT in outpatient setting. Goals Bed Mobility Goal Independent Transfer Goal Independent,Front Wheeled Walker Gait Goal Independent,Front Wheel Walker Gait Distance 200 Other Goals up/down 3 steps L wall SBA Days to Meet Goals 3 Frequency of Treatment Frequency Of Treatment Twice a Day Treatment Plan Physical Therapy Treatment Plan Bed Mobility Training,Transfer Training,Gait Training, Therapeutic Exercise,Balance Retraining,Post Op Education, Discharge Planning,Hot or Cold Pack,Neuromuscular Re-ed, Coordination Retraining,Manual Therapy Other Recommendations and Next Treatment ambulation, stair climbing, Focus caregiver training if appropriate Recommendations To Nursing Amount of Assist Needed Standby Assistance Discharge Recommendations PT Discharge Recommendations Home with Assistance, Outpatient PT Transportation Needs at Discharge Private Vehicle
--- NOTE | 2020-09-03 11:08 | PC.NURSE ---
Pt is ready for discharge home with daughter. IV removed. D/C instructions reviewed with Pt and Daughter. Discussed d/c meds, time of last dose, reviewed stroke education, and follow up. No further questions. Pt out via w/c by FOREST OFFICER to pov with daughter and all belongings.
--- NOTE | 2020-09-03 14:48 | CM.DANOTE ---
Addendum entered by Mariaelena Velásquez LPN 09/03/20 14:53: OUTPT PT is planned. Original Note: Discharge Planning/Care Management DCP: assessment: case, EMR reviewed, discussed in Team Rounds. At that time PT eval was pending. Pt is an 85 year old male who admitted yesterday for a scheduled L TKA. Surgeon: Dr. Hoff Payer: Medicare and [employer]. Pt did well with PT and was able to d/c to home with his daughter her to pick him up. She is here for the next 6 weeks to stay with pt and his while he recovers from the surgery. Went to to room earlier to check in with pt but he had already left for home as planned in company of this daughter. Advanced directive, confirm from FAMILY Start: 09/02/20 11:20 Freq: Q24H Status: Discharge Protocol: Document 09/02/20 11:20 MIGUEL (Rec: 09/02/20 14:16 MIGUEL [id number]) Advance Directive, confirm on record Time 14:16 Person contacted Patient Copy received No CM Discharge Assessment Start: 09/03/20 14:46 Freq: Status: Active Protocol: Document 09/03/20 14:47 ITV (Rec: 09/03/20 14:47 ITV [id number]) Discharge Planning Assessment Advance Directives? Yes Advance Directives on File No History Provided By Medical Record Prior Living Arrangements House Household Members spouse Is patient alert and oriented? Yes Discharge Plan Home Pre-Anesthesia Assessment Start: 08/24/20 14:13 Freq: Status: Complete Protocol: Document 08/24/20 14:13 ISABELA (Rec: 08/24/20 14:22 Prakash [id number]) Pre-Anesthesia Assessment Preferred Name Wilbert Patient Information Reviewed Via Chart Review,Phone Assessment Assessment Completed With Patient Diagnostic Results BMP/CMP,CBC Primary Care Provider Jin العلي Seen Specialist in Last 12 Months Yes Specialist Seen Baby Attendant,Orthopedist Preferred Language Gabonese Production Solderer Required No Height 175.26 cm Hearing Ability Normal Visual Assist Glasses Barriers to Learning Visual Other Aids Yes: Electro-larynx Comment reading glasses Hx Anesthesia Reactions No Hx Family Anesthesia Reaction No Hx Malignant Hyperthermia No Hx Blood Transfusions Yes: Thinks possibly w/ laryngectomy Hx Blood Transfusion Reaction No Anesthesia Review Requested No Cigarette Machines Mechanic No alcohol intake current alcohol intake frequency a few times a month Alcohol Intake Frequency Other: 2/week/record Smoking Status Former smoker Tobacco type cigarettes how long ago did patient quit smoking Quit 1969 Substance Use Type does not use Pain Present Denied Pain Musculoskeletal Symptoms Joint Pain Comment able to walk a mile Patient is completely paralyzed or No completely immobile Ambulatory Aid None/bed rest/nurse assist Gait/Transferring Normal/bedrest/immobile Mental Status Oriented to own ability Is patient on oxygen? No Does patient have ABREU/SOB No: can walk a steep hill Hx Sleep Apnea No CPAP/BIPAP use not prescribed Comment Neck breather Currently Taking a Beta Gato Yes: Metoprolol Can You Climb a Flight of Stairs Without Yes SOB Hx Chest Pain Yes: none since surgery in 2003 Hx SOB Yes: mild exertional dyspnea per record Hx Syncope or Dizziness Yes: mild, postional per record Anti-Coagulant Therapy Yes: Aspirin 81 mg/day Has a Baby Attendant Yes: Yoan; OV 03/30/20 scanned Cardiac Testing Yes: Echo @ [facility] 03/17/20 EF: 55- 60% Hx Pacemaker/ICD No Cardiac Clearance Received Not Applicable Diet Type At Home Regular dysphagia No Bladder Pattern Nocturia Urinary Catheter Present No Hx Urinary Self Catheterization No Comment controlled with med Diabetes No Hx Drug Resistant Organism No Presence of External or Internal Medical Yes: CABG, electro-larynx, L Devices TKA Have you had any close contact with No someone diagnosed with COVID-19? Are you experiencing any of these No symptoms symptoms? Evaluation/Screening for possible COVID- Yes 19 infection completed? Marital Status Lives With spouse,children Prior Living Arrangements House Number of Floors (Floors) One Floor Number of Stairs To Enter/Railing? 1 step into house Support System Family,Spouse Does the Patient Have Assistance After Yes Surgery Patient Discharge Plan Description Return Home Comment daughter coming out from [place] for 6 weeks, she cares for people in long-term Feels Safe in Current Environment Yes Been Physically Hurt or Threatened By a No Person in Current Environment Do you have thoughts of harming yourself None or others? Are you currently considering suicide? No Do you have a plan to hurt yourself or No Plan others? Do You Have Any Spiritual Beliefs That No May Affect Your HC Choices? Do You Have Any Cultural Practices That No May Affect Your HC Choices? Who Can We Speak to About Patient's Care Friends & Family Identifying Code for Release of Patient Declined Information Health Care Proxy/Next of Kin Cindy Jensen Health Care Proxy Emergency Contact Name Cindy () Emergency Contact Advance Directives? Yes Advance Directives on File No Requested Patient Bring Advanced Yes Directives DOS Power of Front Loader Residential Driver Yes Power of Front Loader Residential Driver Name Cindy () Power of Front Loader Residential Driver PAC Instructions Assistance for 24 hours post- op,Do not shave/clip surgical site,Durable medical equipment ,Medications to take/avoid, Nasal antibiotic,No ETOH/ petroleum product on skin DOS, NPO,Post-op transportation,Pre -op antibiotic,Pre-surgical wash,Sensory aids,Sturdy shoes /comfortable clothes,Do not bring valuables and remove jewelry
== END 2020-09-03 11:09 | disposition home or self-care (01) ==
LOC: OR 06:11 → AC 08:57
PROVIDERS: Referring Provider Orthopaedic Surgery; Visit Provider Orthopaedic Surgery
PROC: 0SRC0JZ Replacement of Right Knee Joint with Synthetic Substitute, Open Approach (ICD-10-PCS; CPT 27447; principal; 2020-09-02 07:45)
DX: M17.11 Unilateral primary osteoarthritis, right knee (principal); I25.10 Atherosclerotic heart disease of native coronary artery without angina pectoris; Z95.1 Presence of aortocoronary bypass graft; I10 Essential (primary) hypertension
CPT/HCPCS: 27447; 73560; 85014; 85018; 97116; 97161; C1776; C9290; J0690; J1100; J2250; J2405; J2704; J3010

== ENCOUNTER → 2022-09-14 14:50 | Outpatient (CLI) | payer MEDICARE, OTHER, SELFPAY ==
[2020-09-02 11:00] VITALS: BMI 32.1
--- NOTE | 2022-09-14 | DI.ECHO.S_ITS ---
[facility] [address] [place]. [address] [place] [facility]---------+ [facility] +---------+ : : [address] : : : : [place] : : : : [address] : : : : Phone: [phone] : [phone]+ Echocardiogram Report + + :Name: MEIR YEAGER Study Date: 09/14/2022 Height: 69 in : :[facility] ReadingLocation: Weight: 224 lb: : Gender: Male BSA: 2.2 m2 : :: 1935 Age: 87 yrs : :Reason For Study: AORTIC INSUFFICIENCY : :Ordering Physician: LESIA, : :BECKIE Performed By: ЮЛИЯ BAXTER : :Referring: BECKIE GRAF : + + Interpretation Summary Left ventricular systolic function remains well-preserved with an estimated ejection fraction grossly around 55 to 60% without any obvious focal wall motion abnormalities although visualization is somewhat reduced. There is a mild dyssynchronous contraction pattern likely due to a conduction abnormality. Left ventricular size and wall thickness remain normal and grossly unchanged with a probable diastolic relaxation abnormality but normal filling pressures, also likely unchanged from the previous study. The right ventricle is not well seen but grossly appears normal and likely unchanged from the previous study. Right ventricular systolic pressure cannot be estimated but CVP is likely around 3 mmHg. There is mild left atrial enlargement that is unchanged with normal right atrial size that measures smaller. There is aortic valve sclerosis with mild to moderate aortic regurgitation but no other significant valvular abnormality. The degree of mitral, tricuspid, and pulmonic valve regurgitation appears less prominent although less well visualized. The aortic root and ascending aorta are borderline enlarged measuring 3.5 and 3.6 cm, respectively, compared to 3.3 and 3.8 cm on the previous exam. The patient was in sinus rhythm with occasional PVCs. Procedure: A two-dimensional transthoracic echocardiogram with color flow and Doppler was performed. The study quality was technically adequate. Comparison is made with the echocardiogram of 03/17/2020. The patient was in sinus rhythm with heart rates between 55-72 bpm during the exam. The patient had occasional PVCs during the exam. Left Ventricle: The left ventricle is normal in size and wall thickness. The estimated left ventricular end diastolic volume is 101 mL compared to the previous 102 mL ml. Left ventricular systolic function is probably normal. The ejection fraction is estimated to be 55-60%. There is a mild dyssynchronous contraction pattern, consistent with a conduction abnormality. There are no obvious focal wall motion abnormalities noted but poor endocardial definition reduces the sensitivity for the detection of such. Diastolic parameters suggest a relaxation abnormality of the left ventricle, consistent with probable normal filling pressures. This is unchanged compared to the previous study. Right Ventricle: The right ventricle is not well visualized. The right ventricle grossly appears normal in size with probable normal systolic function. This is likely unchanged compared to the previous study. Atria: The left atrium is mildly dilated. The right atrium is normal in size. Right atrial index is 8.7 mL/mA?. Left atrial size remains unchanged while right atrial size has decreased since the previous study. There is no Doppler evidence for an interatrial shunt. Mitral Valve: The mitral valve leaflets appear borderline thickened, but open well. The mitral valve leaflets are mildly calcified. There is mild mitral annular calcification. There is trace mitral regurgitation. This is less prominent compared to the previous study. Aortic Valve: The aortic valve is trileaflet. The aortic valve is mildly calcified. The aortic valve opens well. There is no aortic valve stenosis. There is mild to moderate aortic regurgitation. This is unchanged compared to the previous study. Tricuspid Valve: The tricuspid valve is normal. There is trace tricuspid regurgitation. This is less prominent compared to the previous study. Pulmonary artery pressures cannot be estimated because of the lack of a measurable TR jet velocity but the IVC suggests a CVP of around 3 mmHg. Pulmonic Valve: The pulmonic valve is normal in structure and function. There is trace pulmonic regurgitation. Great Vessels: The aortic root is borderline dilated. The ascending aorta is at the upper limits of normal in size. The IVC is of normal diameter and collapses greater than 50% with a sniff. This suggests a low right atrial pressure of 3 mm Hg. Pericardium/ Pleura There is no pericardial effusion. There is no pleural effusion. MMode/2D Measurements & Calculations LVIDd: 4.6 cm LVOT diam: 2.4 cm LVIDs: 2.9 cm Ao root diam: 3.5 cm FS: 37.0 % asc Aorta Diam: 3.6 cm IVSd: 1.1 cm LVPWd: 1.1 cm LV holt. diameter/BSA (cm/m^2): 2.1 LV sys. diameter/BSA (cm/m^2): 1.3 LA A2 area: 22.7 cm2 RA long axis: 4.3 cm LA A4 area: 24.2 cm2 LA length (vol): 6.0 cm LA vol: 77.6 ml LA vol index: 35.8 ml/m2 LVLs ap4: 6.6 cm LVLd ap2: 7.7 cm LVLs ap2: 6.4 cm TAPSE_phl: 2.2 cm Doppler Measurements & Calculations Ao V2 max: 176.0 cm/sec LVOT Max Jose Daniel: 91.4 cm/sec Ao V2 mean: 125.0 cm/sec LV V1 max P.3 mmHg Ao max P.4 mmHg LV V1 VTI: 19.8 cm Ao mean P.0 mmHg BREEZY(I,D): 2.3 cm2 Ao V2 VTI: 39.4 cm BREEZY(V,D): 2.3 cm2 sev ratio: 0.50 BREEZY indexed to BSA (cm^2/m^2): 1.0 AI P1/2t: 523.9 msec AI dec slope: 232.0 cm/sec2 MV E max jose daniel: 45.0 cm/sec TR max jose daniel: 217.0 cm/sec MV A max jose daniel: 78.0 cm/sec TR max P.8 mmHg MV E/A: 0.58 PA V2 max: 83.0 cm/sec Med Peak E' Jose Daniel: 4.9 cm/sec PA V2 mean: 66.1 cm/sec E/E' med: 9.1 PA mean P.0 mmHg Lat Peak E' Jose Daniel: 7.9 cm/sec PA pr(Accel): 23.6 mmHg E/E' lat: 5.7 E/e' average: 7.4 MV dec time: 0.20 sec SV(LVOT): 89.6 ml AV P1/2t-pr_phl: 474.0 msec AV VR_phl: 0.52 BREEZY(VTI)/BSA_phl: 1.1 MV P1/2t-pr_phl: 57.0 msec Reading Physician:02:40 PM
== END ==
PROVIDERS: PCP Internal Medicine; Visit Provider Specialist
DX: I08.0 Rheumatic disorders of both mitral and aortic valves (principal)
CPT/HCPCS: 93306

== ENCOUNTER → 2024-12-14 12:34 | Outpatient (CLI) | payer MEDICARE, OTHER, SELFPAY ==
[2020-09-02 11:00] VITALS: BMI 32.1
--- NOTE | 2024-12-14 12:36 | DI.ECHO.S_ITS ---
[facility]---------+ [facility] : : [address] : : [place] : : [id number] : : Phone: [phone] Echocardiogram Report + + :Name: MEIR YEAGER Study Date: 12/14/2024 Height: 69 in : :[facility] ReadingLocation: Weight: 228 lb : : Gender: Male BSA: 2.2 m2 : :: 1935 Age: 89 yrs BP: 152/70 mmHg: :Reason For Study: MITRAL VALVE REGURGITATION : :Ordering Physician: LESIA, : :BECKIE Performed By: Amy Mcmanus : :Referring: BECKIE GRAF : + + Interpretation Summary Left ventricular systolic function remains normal with an estimated ejection fraction of 55 to 60% without any focal wall motion abnormality and appears unchanged. Left ventricular size and wall thickness remain normal with a probable diastolic relaxation abnormality but normal filling pressures, also likely unchanged. The right ventricle is not well-seen but grossly appears normal and unchanged. Right ventricular systolic pressure is estimated at 20 mmHg plus the clinically estimated CVP. Both atria are normal in size and grossly unchanged from the previous exam. There is mild mitral and tricuspid regurgitation, both slightly more prominent but better imaged compared to the previous study. There is mild aortic valve sclerosis without stenosis but mild to moderate aortic regurgitation that appears unchanged. The aortic root and ascending aorta remain borderline enlarged but grossly unchanged. The patient was in sinus rhythm at 49-60 bpm with occasional PVCs, occasionally in a trigeminal pattern. Procedure: A two-dimensional transthoracic echocardiogram with color flow and Doppler was performed. The study quality was technically adequate. Comparison is made with the echocardiogram of 09/14/2022. The patient had occasional PVCs during the exam. Short segment of trigeminy Image#[id number]. The patient was in sinus bradycardia with heart rates between 49-58 bpm during the exam. Left Ventricle: The left ventricle is normal in size and wall thickness. There is mild proximal septal thickening noted. The estimated left ventricular end diastolic volume is 112 mL compared to the previous 101 ml. Left ventricular systolic function appears normal without focal wall motion abnormalities. The ejection fraction is estimated to be 55-60%. This is unchanged compared to the previous study. Diastolic parameters suggest a relaxation abnormality of the left ventricle, consistent with probable normal filling pressures. This is unchanged compared to the previous study. Right Ventricle: The right ventricle is not well visualized. The right ventricle grossly appears normal in size with probable normal systolic function. This is unchanged compared to the previous study. Atria: Both atria are normal in size. This is grossly unchanged compared to the previous study. There is no Doppler evidence for an interatrial shunt. Mitral Valve: There is mild to moderate mitral annular calcification. The mitral valve leaflets appear mildly thickened, but open well. The mitral valve leaflets are mildly calcified. There is mild mitral regurgitation. This is slightly more prominent but better imaged compared to the previous study. Aortic Valve: The aortic valve is trileaflet. There is mild aortic valve sclerosis. The aortic valve is mildly calcified. There is minimally reduced leaflet mobility. There is no hemodynamically significant valvular aortic stenosis. There is mild to moderate aortic regurgitation. This is unchanged compared to the previous study. Tricuspid Valve: The tricuspid valve leaflets are thin and pliable. There is mild tricuspid regurgitation. This is slightly more prominent but better imaged compared to the previous study. Right ventricular systolic pressure is estimated to be 20 mmHg plus the clinically estimated CVP which cannot be estimated on this exam. Pulmonic Valve: The pulmonic valve leaflets are thin and pliable; valve motion is normal. There is trace pulmonic regurgitation. This is unchanged compared to the previous study. Great Vessels: The aortic root is borderline dilated. The ascending aorta is at the upper limits of normal in size. This is unchanged compared to the previous study. The inferior vena cava was not visualized. Pericardium/ Pleura There is no pericardial effusion. There is no pleural effusion. MMode/2D Measurements & Calculations LVIDd: 5.0 cm LVOT diam: 2.4 cm LVIDs: 3.4 cm Ao root diam: 3.7 cm FS: 32.3 % asc Aorta Diam: 3.6 cm EPSS: 0.82 cm IVSd: 1.1 cm LVPWd: 0.88 cm LV holt. diameter/BSA (cm/m^2): 2.3 LV sys. diameter/BSA (cm/m^2): 1.6 LA A2 area: 20.7 cm2 RA long axis: 6.1 cm LA A4 area: 24.5 cm2 RA area: 19.2 cm2 LA length (vol): 6.4 cm RA vol: 51.2 ml LA vol: 67.7 ml RA : 23.5 ml/m2 LA vol index: 31.0 ml/m2 RVD1 (basal): 3.7 cm TAPSE: 1.7 cm Doppler Measurements & Calculations Ao V2 max: 185.4 cm/sec LVOT Max Jose Daniel: 86.0 cm/sec Ao V2 mean: 132.9 cm/sec LV V1 max P.0 mmHg Ao max P.7 mmHg LV V1 VTI: 21.6 cm Ao mean P.1 mmHg BREEZY(I,D): 2.1 cm2 Ao V2 VTI: 47.8 cm BREEZY(V,D): 2.2 cm2 sev ratio: 0.45 BREEZY indexed to BSA (cm^2/m^2): 0.97 AI P1/2t: 598.8 msec AI dec slope: 188.1 cm/sec2 MV E max jose daniel: 42.1 cm/sec TR max jose daniel: 225.5 cm/sec MV A max jose daniel: 80.3 cm/sec TR max P.3 mmHg MV E/A: 0.52 PA V2 max: 85.6 cm/sec Med Peak E' Jose Daniel: 6.4 cm/sec PA V2 mean: 57.9 cm/sec E/E' med: 6.6 PA mean P.5 mmHg Lat Peak E' Jose Daniel: 7.8 cm/sec PA pr(Accel): 34.0 mmHg E/E' lat: 5.4 E/e' average: 6.0 MV dec time: 0.46 sec SV(LVOT): 101.4 ml Reading Physician:03:20 PM
== END ==
PROVIDERS: PCP Internal Medicine; Referring Provider Specialist; Visit Provider Specialist
DX: I34.0 Nonrheumatic mitral (valve) insufficiency (principal); I35.1 Nonrheumatic aortic (valve) insufficiency; I07.1 Rheumatic tricuspid insufficiency; I35.8 Other nonrheumatic aortic valve disorders; I49.3 Ventricular premature depolarization
CPT/HCPCS: 93306